=== PATIENT | male | born 1995 | race Hispanic/Latino ===

== ENCOUNTER 2021-06-14 16:50 | Emergency (ER) | payer OTHER, SELFPAY ==
--- NOTE | ~2021-06-14 | XR_ITS ---
EXAMINATION: XR elbow LT min 3V EXAM DATE: 06/14/2021 17:42 INDICATION: Injury. Left elbow pain. TECHNIQUE: Left elbow frontal, lateral with flexion, and oblique projections obtained and reviewed. There is no prior study for comparison. FINDINGS: Left elbow anterior humeral line intact. There are no acute fractures or dislocations chris ntified. There is no subcutaneous gas. The posterior laceration with with tiny scattered densities, gravel or debris. This potentially could be exposing the bone. There are no radiopaque foreign davion s. IMPRESSION: Deep laceration, tiny foreign bodies. Reviewed, dictated and finalized at location G.
[2021-06-14 16:54] VITALS: BP 129/71; PULSE 67; RESP 18; TEMP 36.8; O2SAT 98
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
[2021-06-14 18:58] VITALS: BP 124/68; PULSE 70; RESP 16; TEMP 36.6; O2SAT 100
== END 2021-06-14 19:00 | disposition home or self-care (01) ==
PROVIDERS: Emergency Provider Family Medicine
DX: S51.012A Laceration without foreign body of left elbow, initial encounter (principal); V68.5XXA Driver of heavy transport vehicle injured in noncollision transport accident in traffic accident, initial encounter
CPT/HCPCS: 73080; 99283